=== PATIENT | female | born 1990 | race Caucasian/White ===

== ENCOUNTER 2017-10-11 06:52 | Inpatient (IN) | payer OTHER ==
[~2017-10-11] VITALS: Ht 157.5 cm; Wt 93.4 kg
[2017-10-11] MEDS ORDERED: PRENATAL TABLE1 EAC1 PO (11:05)
[2017-10-11] MEDS ORDERED: ZYRTEC10 M3 PO (11:06)
== END 2017-10-13 18:22 | DRG 775 ==
LOC: LDR 06:52 → OB/GYN 22:34
PROC: 10E0XZZ Delivery of Products of Conception, External Approach (ICD-10-PCS; principal; 2017-10-11)
PROC: 0KQM0ZZ Repair Perineum Muscle, Open Approach (ICD-10-PCS; 2017-10-11)
PROC: 10907ZC Drainage of Amniotic Fluid, Therapeutic from Products of Conception, Via Natural or Artificial Opening (ICD-10-PCS; 2017-10-11)
PROC: 3E033VJ Introduction of Other Hormone into Peripheral Vein, Percutaneous Approach (ICD-10-PCS; 2017-10-11)
PROC: 4A1HXCZ Monitoring of Products of Conception, Cardiac Rate, External Approach (ICD-10-PCS; 2017-10-11)
DX: O70.1 Second degree perineal laceration during delivery (principal); Z37.0 Single live birth; Z3A.39 39 weeks gestation of pregnancy